=== PATIENT | male | born 1945 | race Caucasian/White ===

== ENCOUNTER 2022-08-29 09:49 | Emergency (ER) | payer MEDICARE ==
[~2022-08-29] VITALS: Ht 172.7 cm; Wt 113.2 kg
[2022-08-29 09:50] VITALS: TEMP 97.8
[2022-08-29] MEDS ORDERED: OMEP40CA4 PO (09:56)
[2022-08-29] MEDS ORDERED: ALBU8.5H (09:56)
[2022-08-29] MEDS ORDERED: ASPI81CH33 PO (09:56)
[2022-08-29] MEDS ORDERED: CARV25TA PO (09:56)
[2022-08-29] MEDS ORDERED: TEST50GE2 (09:56)
[2022-08-29 10:36] LABS: BASO % 0.4 % (0.0-1.0); EOS # 0.1 10^3/uL (0.0-0.5); EOS % 1.9 % (0.0-3.0); HEMATOCRIT 35.3 % (42.0-52.0); HEMOGLOBIN 11.5 g/dl (13.5-17.5); LYMPH # 1.5 10^3/uL (1.5-5.0); LYMPH % 31.5 % (24.0-44.0); MEAN CORPUSCULAR HEMOGLOBIN 29.9 pg (27.0-33.0); MEAN CORPUSCULAR HGB CONC 32.6 g/dl (32.0-36.5); MEAN CORPUSCULAR VOLUME 91.7 fl (80.0-96.0); MONO # 0.8 10^3/uL (0.0-0.8); MONO % 17.5 % (2.0-8.0); NEUTROPHILS # 2.3 10^3/uL (1.5-8.5); NEUTROPHILS % 48.7 % (36.0-66.0); RED BLOOD COUNT 3.85 10^6/uL (4.30-6.10); WHITE BLOOD COUNT 4.8 10^3/uL (4.0-10.0)
[2022-08-29 10:55] LABS: PLATELET COUNT, AUTOMATED 92 10^3/uL (150-450)
[2022-08-29 11:08] LABS: CPK CREATINE PHOSPHOKINASE 112 U/L (46-171)
[2022-08-29 11:09] LABS: ALBUMIN 2.7 G/DL (3.2-5.2); ALKALINE PHOSPHATASE 80 U/L (46-116); ALT/SGPT 31 U/L (7.0-40); AST/SGOT 41 U/L (<34); BILIRUBIN,DIRECT 0.2 MG/DL (<0.4); BILIRUBIN,TOTAL 0.7 MG/DL (0.3-1.2); BLOOD UREA NITROGEN 15 MG/DL (9-23); CALCIUM LEVEL 8.5 MG/DL (8.3-10.6); CARBON DIOXIDE LEVEL 26 MMOL/L (20-31); CHLORIDE LEVEL 111 MMOL/L (98-107); CK-MB VALUE MASS 1.5 NG/ML (<3.6); CREATININE FOR GFR 0.77 MG/DL (0.70-1.30); GLOMERULAR FILTRATION RATE > 60.0 (>42); GLUCOSE, FASTING 129 MG/DL (74-106); MB/CK RELATIVE INDEX 1.33 (< OR =4); POTASSIUM SERUM 3.8 MMOL/L (3.5-5.1); SODIUM LEVEL 138 MMOL/L (136-145); TOTAL PROTEIN 6.3 G/DL (5.7-8.2)
[2022-08-29] MEDS ORDERED: ISOVUE-370 76% 100ML VIAL As Ordered ONE (12:28)
[2022-08-29 14:04] VITALS: O2SAT 96
[2022-08-29] MEDS ORDERED: POTASSIUM CHLORIDE 10MEQ SR TABLET PO ONE (14:35)
[2022-08-29] MEDS ORDERED: FUROSEMIDE 40MG/4ML VIAL IV ONE (14:35)
[2022-08-29] MEDS ORDERED: LASI20TA3 PO (14:41)
[2022-08-29] MEDS ORDERED: POTA-165 PO (14:41)
[2022-08-29 15:36] VITALS: BP 148/86
== END 2022-08-29 15:45 | disposition home or self-care (01) ==
LOC: M ED 09:49
DX: R22.43 Localized swelling, mass and lump, lower limb, bilateral (principal); I10 Essential (primary) hypertension; E78.5 Hyperlipidemia, unspecified; K21.9 Gastro-esophageal reflux disease without esophagitis; Z98.84 Bariatric surgery status; Z87.891 Personal history of nicotine dependence
CPT/HCPCS: 71045; 71275; 80048; 80076; 82550; 82553; 83880; 84484; 85025; 85049; 85055; 87486; 87581; 87633; 87798; 93005; 93970; 96374; 99284; J1940; Q9967

== ENCOUNTER → 2022-09-13 | Outpatient (REF) | payer MEDICARE ==
[~2022-09-13] MED LIST: ALBU8.5H; ASPI81CH33 PO; CARV25TA PO; LASI20TA3 PO; OMEP40CA4 PO; POTA-165 PO; TEST50GE2
== END ==
LOC: M LAB REF 16:32
PROVIDERS: ATTEND Otolaryngology
DX: D23.21 Other benign neoplasm of skin of right ear and external auricular canal (principal); L57.8 Other skin changes due to chronic exposure to nonionizing radiation

== ENCOUNTER → 2022-11-10 | Outpatient (REF) | payer MEDICARE | LOC: M WUC 16:25 | PROVIDERS: ATTEND Student in an Organized Health Care Education/Training Program | DX: R30.0 Dysuria (principal) ==

== ENCOUNTER → 2024-10-20 | Outpatient (CLI) | payer MEDICARE | LOC: M SOG 06:49 | PROVIDERS: ATTEND Orthopaedic Surgery | DX: S42.324A Nondisplaced transverse fracture of shaft of humerus, right arm, initial encounter for closed fracture (principal); M25.521 Pain in right elbow; Y93.9 Activity, unspecified; Y92.9 Unspecified place or not applicable ==

== ENCOUNTER → 2024-10-21 | Outpatient (CLI) | payer MEDICARE | LOC: M PLAIMG 13:21 | PROVIDERS: ATTEND Orthopaedic Surgery | DX: S42.401A Unspecified fracture of lower end of right humerus, initial encounter for closed fracture (principal); X58.XXXA Exposure to other specified factors, initial encounter; Y92.9 Unspecified place or not applicable; Y93.9 Activity, unspecified; Y99.9 Unspecified external cause status ==